=== PATIENT | male | born 1985 | race Caucasian/White ===

== ENCOUNTER 2020-09-01 15:36 | Emergency (ER) | payer MEDICAID ==
[~2020-09-01] VITALS: Ht 175.3 cm; Wt 67.6 kg
--- NOTE | 2020-09-01 15:55 | NUR ---
R SIDE RIB AREA PAIN ON AND OFF X 1 MONTH. CONSTANT PAIN TODAY. PATIENT A/OX4, BREATHING EVEN AND UNLABORED, NO SOB NOTED.
--- NOTE | 2020-09-01 16:07 | NUR ---
DR. DIXON AT BEDSIDE FOR EVAL.
[2020-09-01 16:19] LABS: BASOPHILS % (AUTO) 0.5 % (0.0-2.0); EOSINOPHILS % (AUTO) 1.2 % (0.0-6.0); HEMATOCRIT 42 % (39-51); HEMOGLOBIN 14.1 g/dL (13.5-17.5); LYMPHOCYTES # (AUTO) 1.8 /CMM (0.8-4.8); LYMPHOCYTES % (AUTO) 24.1 % (20.0-44.0); MEAN CORPUSCULAR HGB CONC 34 g/dl (31.0-36.0); MEAN CORPUSCULAR VOLUME 97 fL (80-96); MONOCYTES # (AUTO) 0.5 /CMM (0.1-1.30); MONOCYTES % (AUTO) 6.1 % (2.0-12.0); NEUTROPHILS # (AUTO) 5.2 /CMM (1.8-8.9); NEUTROPHILS % (AUTO) 68.1 % (43.0-81.0); PLATELET COUNT (AUTO) 188 /CMM (150-450); RED BLOOD CELL COUNT(AUTO) 4.31 MIL/uL (4.5-6.0); WHITE BLOOD COUNT (AUTO) 7.6 K/uL (4.3-11.0)
[2020-09-01 16:34] LABS: ALANINE AMINOTRANSFERASE 21 U/L (12-78); ALBUMIN 3.9 g/dL (3.4-5.0); ALKALINE PHOSPHATASE 62 U/L (46-116); ASPARTATE AMINOTRANSFERASE 18 U/L (15-37); BILIRUBIN,DIRECT 0.1 mg/dL (0.0-0.2); BILIRUBIN,TOTAL 0.3 mg/dL (0.2-1.0); CALCIUM, SERUM 8.2 mg/dL (8.5-10.1); CARBON DIOXIDE 29 mmol/L (21-32); CHLORIDE 105 mmol/L (98-107); GLUCOSE 91 mg/dL (74-106); POTASSIUM 4.3 mmol/L (3.5-5.1); SODIUM SERUM 141 mmol/L (136-145); TOTAL PROTEIN, SERUM 7.2 g/dL (6.4-8.2); UREA NITROGEN, BLOOD 23 mg/dL (7-18)
[2020-09-01] MEDS ORDERED: CYCL10TA9 PO (17:12)
[2020-09-01] MEDS ORDERED: NAPR-1164 PO (17:12)
[2020-09-01] MEDS ORDERED: IBUPROFEN 600 MG TABLET ONE (17:33)
[2020-09-01] MEDS: IBUPROFEN 600 MG TABLET PO ONE (17:41)
[2020-09-01 17:42] VITALS: BP 127/74
--- NOTE | 2020-09-01 17:42 | NUR ---
Patient discharged to home in stable condition. Written and verbal after care instructions given. Patient verbalizes understanding of instruction.
== END 2020-09-01 17:43 | disposition home or self-care (01) ==
LOC: ER 15:57
DX: R07.81 Pleurodynia (principal); Z88.6 Allergy status to analgesic agent
CPT/HCPCS: 36415; 71100-TC; 76705-TC; 80048-TC; 80076-TC; 84484-TC; 85025-TC

== ENCOUNTER 2020-10-06 20:52 | Emergency (ER) | payer MEDICAID ==
[~2020-10-06] VITALS: Ht 177.8 cm; Wt 64.9 kg
[~2020-10-06 20:52] MED LIST: CYCL10TA9 PO; NAPR-1164 PO
[2020-10-06 21:15] VITALS: BP 119/79
--- NOTE | 2020-10-06 22:03 | NUR ---
Patient discharged to home in stable condition. Written and verbal after care instructions given. Patient verbalizes understanding of instruction. Pt ambulatory w/ steady gait and not in any apparent distress
== END 2020-10-06 22:03 | disposition home or self-care (01) ==
LOC: ER 20:55
DX: B09 Unspecified viral infection characterized by skin and mucous membrane lesions (principal); R21 Rash and other nonspecific skin eruption; Z88.6 Allergy status to analgesic agent; Z60.2 Problems related to living alone; Z79.899 Other long term (current) drug therapy

== ENCOUNTER 2020-10-07 10:53 | Emergency (ER) | payer MEDICAID ==
[~2020-10-07] VITALS: Ht 175.3 cm; Wt 65.8 kg
--- NOTE | 2020-10-07 11:08 | NUR ---
THE PATIENT BIBS FOR C/O GENETALIZED BODY RASH, WITH PERSISTENT ITCHINESS AND GENERALIZED BODY ACHES NOW GETTING WORSE. THE PATIENT DENIES SOB. RESPIRATION REGULAR AND UNLABORED. THE PATIENT IS ALERT AND ORIENTED X4. WILL CONTINUE TO MONITOR.
[2020-10-07 11:30] VITALS: BP 123/72
--- NOTE | 2020-10-07 11:30 | NUR ---
Patient discharged to home in stable condition. Written and verbal after care instructions given. Patient verbalizes understanding of instruction. The patient left ER in stable conditon.
== END 2020-10-07 11:31 | disposition home or self-care (01) ==
LOC: ER 10:56
DX: B08.4 Enteroviral vesicular stomatitis with exanthem (principal); R21 Rash and other nonspecific skin eruption; Z88.6 Allergy status to analgesic agent; Z60.2 Problems related to living alone; Z79.899 Other long term (current) drug therapy